=== PATIENT | male | born 1945 | race Caucasian/White ===

== ENCOUNTER 2016-10-25 14:09 | Observation (INO) | payer OTHER ==
--- NOTE | 2016-10-22 11:55 | MH ---
cc: RYAN EATON DMD DATE OF ADMISSION 10/25/2016 DATE OF 1945 Mr. Paredes presented to my office on August 30, 2016 for evaluation of the lesion on his tongue on the right anterior floor of mouth, and lateral to the frenum. He has got a past history of smoking and quit about six years ago. When he was seen, it had been there about a month. It was noted that he was seeing a dentist. 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 I did speak to the pathologist who felt that excision of the remaining requires to be done. I did discuss this with the patient. The plan is to excise this lesion by partial glossectomy with frozen sections, and local advancement closure. The benefits, risks and indication of the procedure, procedure in detail and the options of no treatment including alternatives were discussed with this patient. The risks not limited to postop pain, infection, bleeding, damage to the adjacent soft tissue, hard tissue anesthesia complications, numbness, speech and tongue shape changes/taste changes may occur, salivary duct involvement, recurrence, further surgeries as required. The patient also advise of possible laser may also be required later on. All questions and concerns were addressed. PAST MEDICAL HISTORY 1. Heart murmur 2. High cholesterol PAST SURGICAL HISTORY 1. Appendectomy 2. Tonsillectomy GROWTH AND DEVELOPMENT Normal INFECTIOUS DISEASE Denied AUTOIMMUNE DISORDERS Denied MEDICATIONS Simvastatin 40 mg FAMILY HISTORY Dad of aneurysm. Mom of cirrhosis. Inherited familial disease, denied. SOCIAL HISTORY [facility] ([facility] Tobacco 50 years smoking, quit six years ago he said. Eating well. Alcohol quit eight years ago. Sleeping within normal limits. 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 REVIEW OF SYSTEMS GENERAL: Weight 240 pounds, height 68 inches body mass index 37. A well-nourished, well-groomed male. HEAD: Denies any headache, dizziness, injury or seizures. EYES: History of vision disturbances. Wears glasses secondary to cataracts. Denies any double vision, tearing or blind spots. NOSE: Denies any bleeding, obstruction or discharges. Denies any dental difficulties or gingival bleeding. Wears upper and lower partial dentures. Denies any hoarseness, soreness or any thyroid disease. He has previous had tonsillectomy. LYMPH NODES: Denies local glandular enlargement. RESPIRATORY: Denies any TB or any shortness of breath. Occasional coarse. Asthma occasional as a child. Denies any COPD or sleep apnea. CARDIOVASCULAR: Denies any pericardial pain, any hypo or hypertension. Childhood murmur. Denies any shortness of breath on excursion, any edema or phlebitis. Denies any rheumatic fever or any heart surgeries. GASTROINTESTINAL: Denies any gallbladder, IBS or peptic ulcer disease. GENITOURINARY: Denies any GI, kidney disease or any renal disease. MUSCULOSKELETAL: Denies any pain, limitation of movement or muscular weakness. ENDOCRINE: Denies any diabetes mellitus, hormone therapy or any growth disturbances. RHEUMATOLOGIC: Denies anemia, bleeding tendency or any Rh incompatibility. NEUROLOGIC: Denies any sensory or motor disturbances. EXAMINATION VITAL SIGNS: Temperature is 98.2 degrees, pulse is 73, blood pressure is 142/81, oxygen saturation of 98%, respiration rate 16. GENERAL: Somewhat obese male, alert, awake and oriented well-groomed male. HEAD: Normocephalic. No masses noted. EYES: Pupils equal round react to light and accommodation. Extraocular movements are intact. NOSE: Midline nose. Airway is patent and symmetrical. MOUTH: Clear, pink and moist. Melancholy too. Edentulous maxilla/mandible. There is a lesion that is noted on the right anterior floor of the mouth/tongue lateral to the frenum. There is no and neck edema noted. The lesion is smooth and firm. Site approximately 1-1/2 cm x 1/2 cm. There is yellowish whitish in the area. No tenderness to palpation. No ulceration noted. Wires are well circumscribed. NECK: Supple, midline. No lymphadenopathy. No neck edema noted. Trachea midline. CARDIOVASCULAR: Regular rate and rhythm. RESPIRATORY: Clear to auscultation bilaterally. ABDOMEN: Positive bowel sounds. Nontender, however he has a large stomach/abdomen. He is obese. He has positive bowel sounds. : Deferred. EXTREMITIES: Positive range of movement upper extremities and lower extremities. Positive pedal and distal pulses. NEUROLOGIC: He is alert, awake and oriented x3 in no acute distress. Cranial through II-XII appears to be grossly intact. 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 LABORATORY DATA White count dated August 10, 2016, white count is 8.3, H&H is 15.10, 45.4 with platelets of 177, hemoglobin A1c is 6. Sodium is 142, potassium is 4.8, chloride is 102, CO2 is 29, calcium is 9.5, BUN/creatinine ratio was not noted and not applicable. EKG dated August 06, 2016, normal echocardiogram except for the rate was 58, bradycardic sinus. 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 We plan to do a partial glossectomy of that site with local advancement closure with frozen sections. The patient probably will be kept overnight for observation, for pain control and for verifying that he does not have a significant amount of edema of the tongue. Benefits, risks, indication of the procedure and the procedure in detail all discussed with this patient. All questions and concerns were addressed. Ryan Eaton DMD RN OUTPATIENT SURGERY/HAIDER /11:04 AM /11:28 AM
[~2016-10-25] VITALS: Ht 172.7 cm; Wt 109.0 kg
[~2016-10-25 14:09] MED LIST: BACITRACIN TOP OINT 15 GM TUBE ONE; CHLORHEXIDINE GLUCONATE 0.12% 15 ML CUP ONE; DEXAMETHASONE SOD PHOS 20 MG/5 ML VIAL ONE; LACTATED RINGER'S 1000 ML INJ 1,000 ML IV ONE; LIDOCAINE 1%/EPINEPHrine 1:100,000 SOLN 20 ML VIAL ONE; NEOSTIGMINE 3 MG/3 ML SYR IV ONE; ONDANSETRON HCL 4 MG/2 ML VIAL IV PUSH ONE; PROPOFOL 200 MG/20 ML AMP IV ONE; SIMV20TA PO; ePHEDrine/NS 25 MG/5 ML SYR IV ONE
[2016-10-25] MEDS ORDERED: METOPROLOL TARTRATE 25 MG TAB PO PRN (15:00)
[2016-10-25] MEDS ORDERED: INSULIN HUMAN REGULAR 1,000 UNITS/10 ML VIAL SQ PRN (15:00)
[2016-10-25] MEDS ORDERED: POVIDONE IODINE 5% (ANTISEPSIS KIT) 4 APPLICATIONS EACH NARE PRN (15:00)
[2016-10-25] MEDS ORDERED: CHLORHEXIDINE GLUCONATE 2 % 1 PACK (2 CLOTHS) TOPICAL PRN (15:00)
[2016-10-25] MEDS ORDERED: SODIUM CHLORID 0.9% 500 ML IV PRN (15:00)
[2016-10-25] MEDS ORDERED: LACTATED RINGER'S 1000 ML IV PRN (15:00)
[2016-10-25] MEDS ORDERED: ceFAZolin 1,000 MG/NS 100 ML IV SCH ×2 (15:00)
[2016-10-25 15:02] VITALS: BP 158/78; PULSE 86; RESP 16; TEMP 99.4; O2SAT 96
[2016-10-25] MEDS ORDERED: SODIUM CHLORIDE 0.9% INJ 100 ML ONE (15:14)
[2016-10-25] MEDS ORDERED: ceFAZolin INJ 1,000 MG VIAL ONE (15:14)
[2016-10-25] MEDS ORDERED: MIDAZOLAM HCL 2 MG/2 ML VIAL ONE (15:57)
[2016-10-25] MEDS ORDERED: fentaNYL CITRATE 250 MCG/5 ML AMP ONE (15:57)
[2016-10-25] MEDS ORDERED: ACETAMINOPHEN 1000 MG/100 ML VIAL IV ONE (15:57)
[2016-10-25] MEDS ORDERED: DEXAMETHASONE SOD PHOS 4 MG/ML VIAL ONE (15:58)
[2016-10-25] MEDS ORDERED: LIDOCAINE 2%/EPINEPHrine PF 1:200,000 20ML SDV ONE (16:17)
[2016-10-25] MEDS ORDERED: BUPIVACAINE/EPINEPHRINE 0.5% PF 10 ML VIAL INFIL ONE (16:38)
[2016-10-25] MEDS ORDERED: methylPREDNISolone SOD SUCC 125 MG/2 ML VIAL ONE (17:55)
[2016-10-25] MEDS ORDERED: SODIUM CHLORIDE FLUSH PRN IV FLUSH (19:00)
[2016-10-25] MEDS ORDERED: DO NOT ADM ANY ANTICOAGULANT DRUGS PRN (19:00)
[2016-10-25] MEDS ORDERED: MORPHINE SULFATE 8 MG/ML INJ IV PUSH PRN (19:15)
[2016-10-25] MEDS ORDERED: ONDANSETRON HCL 4 MG/2 ML VIAL IV PUSH PRN (19:15)
[2016-10-25] MEDS ORDERED: ACETAMINOPHEN 325MG/HYDROcodone 7.5MG/15ML UDC PO PRN (19:15)
[2016-10-25 20:00] VITALS: BP 152/71; PULSE 67; RESP 17; TEMP 97.6; O2SAT 96
[2016-10-25 21:06] VITALS: O2SAT 99
[2016-10-25] MEDS: SODIUM CHLOR 0.9% 1000 ML INJ 1,000 ML IV SCH (21:49)
[2016-10-25] MEDS: methylPREDNISolone SOD SUCC 125 MG/2 ML VIAL IV PUSH SCH (21:49)
[2016-10-25] MEDS: SODIUM CHLORIDE FLUSH BID IV FLUSH SCH (21:50)
[2016-10-26] MEDS ORDERED: ceFAZolin 1,000 MG/NS 100 ML IV SCH ×2
[2016-10-26 00:35] VITALS: BP 144/62; PULSE 67; RESP 18; TEMP 96.3; O2SAT 97
[2016-10-26] MEDS: methylPREDNISolone SOD SUCC 125 MG/2 ML VIAL IV PUSH SCH (02:36)
[2016-10-26 04:10] VITALS: BP_SYST 144; BP_SYST 155; BP_DIAS 65; BP_DIAS 69; PULSE 65; PULSE 90; RESP 18; TEMP 95.8; TEMP 98; O2SAT 93; O2SAT 94
[2016-10-26] MEDS: SODIUM CHLOR 0.9% 1000 ML INJ 1,000 ML IV SCH (06:07)
[2016-10-26] MEDS ORDERED: methylPREDNISolone ACETATE 80 MG/ML VIAL IM ONE (07:00)
--- NOTE | 2016-10-26 07:47 | HHI.PR ---
Subjective Remarks POD 1 s/p right partial glossectomy with frozen sections pt seen and examined , AAOx3, NAD tolerating po well, no complaints denies f/c/n/v/sob/difficulty breathing/pain Objective Vital Signs Date Time Temp Pulse Resp B/P Pulse Ox O2 Delivery O2 Flow Rate FiO2 10/26/16 04:10 95.8 65 18 144/65 93 10/26/16 00:35 96.3 67 18 144/62 97 10/25/16 21:06 99 Nasal Cannula 2.00 10/25/16 20:00 97.6 67 17 152/71 96 10/25/16 18:43 Nasal Cannula 2.00 10/25/16 18:12 98.2 Nasal Cannula 2 10/25/16 18:00 71 19 159/72 99 Nasal Cannula 2 10/25/16 17:52 72 13 164/72 99 Nasal Cannula 2 10/25/16 17:51 98.6 75 20 198/78 99 Nasal Cannula 2 10/25/16 15:02 99.4 86 16 158/78 96 I/O 10/25/16 10/25/16 10/25/16 10/26/16 10/26/16 10/26/16 07:00 15:00 23:00 07:00 15:00 23:00 Intake Total 1729 ml 240 ml Output Total 215 ml 325 ml Balance 1514 ml -85 ml Intake Oral 480 ml 240 ml IV Total 249 ml Other 1000 ml Output Urine Total 200 ml 325 ml Estimated Blood Loss 15 ml # Bowel Movements 0 0 Objective Remarks no neck edema intraorally, tissues pink well perfused wound margins well approximated, sutures in place hemostatic, no elevation fom/tongue, goo mobility/speech tongue scd's b/l le Assessment and Plan Assessment and Plan POD 1 s/p right partial glossectomy with frozen sections ok to dc to home today' f/up dr eaton 1 week mechanically soft diet no strenuous activity/exercises resume home med no drinking with straw Fernando Eaton DMD Oct 26, 2016 07:47
[2016-10-26 08:00] VITALS: BP 134/63; PULSE 64; RESP 18; TEMP 95.7; O2SAT 95
[2016-10-26] MEDS: SODIUM CHLORIDE FLUSH BID IV FLUSH SCH (09:00)
--- NOTE | 2016-10-26 16:39 | MP ---
cc: RYAN DE LA GARZA DMD DATE OF SURGERY: 10/25/2016 PREOPERATIVE DIAGNOSIS: Right tongue carcinoma in situ, microinvasive focus of squamous cell carcinoma. POSTOPERATIVE DIAGNOSIS: Right tongue carcinoma in situ, microinvasive focus of squamous cell carcinoma. PROCEDURE: Right partial glossectomy with frozen sections. ANESTHESIA General also 2% lidocaine with 1:100,000 epinephrine approximately 4 cc, also 0.5% Marcaine with 1:200,000 epinephrine approximately 3 cc at the end of the procedure. SURGEON: Dr. De La Garza PROFESSOR OF THEATRE: Kevin Burger. SPECIMENS Main specimen with frozen sections x3. COMPLICATIONS: None. DISPOSITION: The patient tolerated the procedure well. INDICATIONS FOR PROCEDURE: Mr. Paredes is a 71 year-old male who had a biopsy done in the office underneath the right ventral anterior tongue and it came back as squamous cell carcinoma, carcinoma in situ with microinvasive focally point. He is going to require resection of this lesion in its entirety. It is approximately 1/2 cm x 1 cm. It is a T1 N0 M0 classification. Benefits, risks, indication of the procedure, procedure in detail and the options of no treatment were all discussed with this patient including alternatives, risks not limited to any postop pain, infection, bleeding, damage to the adjacent soft tissue, hard tissue, anesthesia complications, speech changes / eating changes, numbness, gland involvement including submandibular, sublingual gland duct involvement, and further surgeries as required. All questions and concerns were addressed. Consent is signed in the chart. PROCEDURE IN DETAIL The patient was met perioperatively. Past medical history was reviewed and updated, no changes noted. The right side of the face was marked. The patient went to the operating room, draped in normal sterile fashion. The patient was intubated orally. Eyes were taped shut. All pressure points were padded. At this time, a time-out was taken to identify the patient, the site, the procedure, surgeon, all were in agreement. I went to sink to scrub and came back dressed in sterile attire. The patient was draped normal sterile fashion. Bite block was gently placed on the left side of the mouth. Back of throat was suctioned. A moistened Ray-Michelle used as a throat pack. Peridex mouth rinse was done. 2% lidocaine with 1:1000 epinephrine was injected near the anterior tip of the tongue and then over the right ventral tongue from the lateral aspect down to the floor of the mouth region. Once this was done a 2-0 silk suture was placed through the anterior tip to pull the tongue out. A marking pen was used to outline the plane of the incision on the right side, keeping in mind the position of that right-sided Stensen's duct. A 15 blade was now used to remove this lesion. Finally frozen sections were done which includes the superior, posterior, inferior, anterior and the deep section. Dr. Cross, the pathologist, indicated all were negative. At this point the area once again was irrigated with Peridex solution. The lateral margins were undermined for a tension-free closure. Finally the site was now closed with 0 Vicryl sutures, Bovie was used to stop any aberrant bleeders. The 2-0 silk sutures were removed, throat pack and bite blocks were removed. The patient tolerated the procedure well. No complication noted. We will await the final specimen. All sponge and needle counts were accounted for. The patient had been extubated and taken to the PACU. Ryan De La Garza, MCKAY METAL FLOW COORDINATOR/EDVIN /12:59 PM /3:50 PM
== END 2016-10-26 10:45 | disposition home or self-care (01) ==
LOC: HSDC 14:09 → N06B 18:36
PROVIDERS: ADMIT Dentist Oral and Maxillofacial Surgery; ATTEND Dentist Oral and Maxillofacial Surgery
DX: D00.07 Carcinoma in situ of tongue (principal); Z87.891 Personal history of nicotine dependence; R01.1 Cardiac murmur, unspecified; E78.00 Pure hypercholesterolemia, unspecified
CPT/HCPCS: 00170; 41120; 88305; 88309; 88331; 88342; G0378; J0131; J0690; J1040; J1100; J2405; J2710; J2930; J3010; J7030; J7120; 88341; J2250